=== PATIENT | female | born 1995 | race Caucasian/White ===

== ENCOUNTER 2016-12-30 12:41 | Emergency (ER) | payer MEDICAID ==
[2016-12-30 12:47] VITALS: BP 118/59; PULSE 98; RESP 20; TEMP 98.6; O2SAT 97
[2016-12-30] MEDS ORDERED: DOCO200C (12:49)
--- NOTE | 2016-12-30 13:08 | PD ---
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 She is about 2 months . She has had some nausea. She is 2 para 1. She has not had fever or chills. She has itching and occasional burning with urination PFSH Past Medical History ?: LMP: 10/23/16 Past Surgical History Tonsillectomy: Yes Social History Alcohol Use: No Tobacco Use: Yes Substance Use: No Allergies-Medications (Allergen,Severity, Reaction): Coded Allergies: No Known Allergies (Verified Allergy, Unknown, 12/30/16) Reported Meds & Prescriptions Reported Meds & Active Scripts Active Reported Dha (Docosahexaenoic Acid) 200 Mg Cap Review of Systems General / Constitutional: No: Fever, Chills Eyes: No: Diploplia, Blurred Vision HENT: No: Headaches, Vertigo Cardiovascular: No: Chest Pain or Discomfort, Palpitations Respiratory: No: Cough, Shortness of Breath Gastrointestinal: No: Vomiting, Diarrhea Genitourinary: Positive: Dysuria, Discharge Musculoskeletal: No: Myalgias, Arthralgias Skin: No Rash Physical Exam Narrative GENERAL: Well-developed female SKIN: Focused skin assessment warm/dry. HEAD: Atraumatic. Normocephalic. EYES: Pupils equal and round. No scleral icterus. No injection or drainage. ENT: No nasal bleeding or discharge. Mucous membranes pink and moist. NECK: Trachea midline. No JVD. GASTROINTESTINAL: Abdomen soft, non-tender, nondistended. Hepatic and splenic margins not palpable. Pelvic: There is whitish vaginal discharge. Os is closed. There is no bleeding MUSCULOSKELETAL: No obvious deformities. No clubbing. No cyanosis. No edema. NEUROLOGICAL: Awake and alert. No obvious cranial nerve deficits. Motor grossly within normal limits. Normal speech. PSYCHIATRIC: Appropriate mood and affect; insight and judgment normal. Data Data Last Documented VS Vital Signs Date Time Temp Pulse Resp B/P (MAP) Pulse Ox O2 Delivery O2 Flow Rate FiO2 12/30/16 12:47 98.6 98 20 118/59 (78) 97 Orders Orders Gc And Chlamydia Pcr (12/30/16 13:07) Wet Prep Profile (12/30/16 13:07) Ua Includes Microscopic (12/30/16 13:07) Labs Laboratory Tests Test 12/30/16 13:30 12/30/16 13:45 Urine Collection Type CLEAN CATCH Urine Color YELLOW Urine Turbidity SLIGHT Urine pH 5.5 Urine Specific [place] 1.021 Urine Protein NEG mg/dL Urine Glucose (UA) NEG mg/dL Urine Ketones NEG mg/dL Urine Occult Blood NEG Urine Nitrite NEG Urine Bilirubin NEG Urine Leukocyte Esterase SMALL Urine WBC 9-14 /hpf Urine Squamous Epithelial Cells > 8 /hpf Urine Amorphous Sediment MOD Urine Trichomonas MUCOUS Urine Collection Time 1330 Clue Cells (Wet Prep) NONE SEEN Vaginal Trichomonas (Wet Prep) NONE SEEN Vaginal Yeast (Wet Prep) NONE SEEN MDM Medical Decision Making Medical Screen Exam Complete: Yes Emergency Medical Condition: Yes Medical Record Reviewed: Yes Differential Diagnosis Differential includes yeast vaginitis, UTI, Trichomonas Narrative Course Wet prep is negative for Trichomonas. It is also negative for yeast but I suspect the diagnosis. I will recommend she continue Motrin. She'll also be given prescription for Macrobid Diagnosis Primary Impression: UTI (urinary tract infection) Additional Impression: Yeast vaginitis Disposition: 01 DISCHARGE HOME Condition: Stable Jacky Ruiz MD Dec 30, 2016 13:08
[2016-12-30 13:46] LABS: BILIRUBIN, URINE NEG (NEG); BLOOD, URINE NEG (NEG); GLUCOSE,URINE NEG (NEG); KETONE, URINE NEG (NEG); NITRITE,URINE NEG (NEG); PH, URINE 5.5 (5.0-8.5); URINE LEUKOCYTE ESTERASE SMALL (NEG)
[2016-12-30 13:53] LABS: URINE COLOR YELLOW (YELLW/STRAW)
[2016-12-30 13:54] LABS: AMORPHOUS SEDIMENT, URINE MOD; SQUAMOUS EPITHELIAL CELL URINE > 8 /hpf (0-5); TRICHOMONAS, URINE MUCOUS
[2016-12-30] MEDS ORDERED: GYNE3CRE VAGINAL (14:06)
[2016-12-30] MEDS ORDERED: MACR100C2 PO (14:06)
[2017-01-12] MEDS ORDERED: PREN1CAP7 PO (11:05)
== END 2016-12-30 14:19 | disposition home or self-care (01) ==
LOC: PHED 12:41
DX: O23.41 Unspecified infection of urinary tract in pregnancy, first trimester (principal); O98.811 Other maternal infectious and parasitic diseases complicating pregnancy, first trimester; B37.3 Candidiasis of vulva and vagina; Z3A.00 Weeks of gestation of pregnancy not specified
CPT/HCPCS: 81001; 87210; 87491; 87591; 99284

== ENCOUNTER 2017-05-26 12:32 | Emergency (ER) | payer MEDICAID ==
[~2017-05-26] VITALS: Ht 157.5 cm; Wt 99.8 kg
[~2017-05-26 12:32] MED LIST: FERRTAB2 PO; PREN1CAP7 PO; SE-NTAB3 PO
--- NOTE | 2017-05-26 13:31 | PD ---
HPI Chief Complaint Abdominal pain and decreased movement Date Seen: May 26, 2017 Time Seen: 13:26 Travel History International Travel<30 Days: No Contact w/Intl Traveler<30Days: No Known Affected Area: No History of Present Illness HPI 21-year-old who is at 30 weeks gestation comes in complaining of abdominal pain in her left side radiating into the groin and down her leg this been present daily for the past month. It does not seem to improve with position or rest and it is not associated with any contractions. Patient also complains of decreased movement for the past 3 days. She had seen by Dr Padilla in the office today who was very reassured by her exam but she was concerned Weeks Gestation: 30 Para: 1 : 2 History Past Medical History Medical History: Denies Significant Hx Obstetric History Obstetric History Spontaneous vaginal delivery at term Past Surgical History Surgical History: No Previous Surgery Family History Family History: Negative Social History Alcohol Use: No Tobacco Use: No Substance Abuse: No Allergies-Medications (Allergen,Severity, Reaction): Coded Allergies: No Known Allergies (Verified , 02/07/17) Home Meds Active Scripts Multi-Vit/Iron-Folic [id number] C (Ferralet) 90-1-0.012-120 mg Tab, 1 CAPLET PO DAILY for 30 Days, #30 CAPLET 3 Refills Prov:Morenita Light CNM [facility] 03/09/17 W/O Vit A W/ Fe Fumar (Citranatal [place]) 27-1-260 Mg Cap, 1 CAP PO DAILY for Nutritional Supplement, #30 CAP 4 Refills Prov:Morenita Light CNM [facility] 01/12/17 Discontinued Scripts Vit W/ Docusate-Fe Fu (Se- 19 29-1 mg) 29 Mg Iron-1 Mg-25 Mg Tab, 1 TAB PO DAILY for Nutritional Supplement for 30 Days, #30 TAB 3 Refills Prov:Morenita Light CNM [facility] 03/09/17 Multi-Vit/Iron-Folic [id number] C (Ferralet) 90-1-0.012-120 mg Tab, 1 CAPLET PO DAILY for 30 Days, #30 CAN 3 Refills Prov:Morenita Light CNM [facility] 03/04/17 Vit W/ Docusate-Fe Fu (Se- 19 29-1 mg) 29 Mg Iron-1 Mg-25 Mg Tab, 1 TAB PO DAILY for Nutritional Supplement for 28 Days, #28 TAB 2 Refills Prov:Morenita Light [employer]ORDS MANAGEMENT MANAGER 01/31/17 Review of Systems Except as stated in HPI: all other systems reviewed are Neg Physical Exam Narrative GENERAL: Well-nourished, well-developed patient. SKIN: Warm and dry. HEAD: Normocephalic and atraumatic. EYES: No scleral icterus. No injection or drainage. ENT: No nasal drainage noted. Mucous membranes pink. Airway patent. NECK: Supple, trachea midline. No JVD. CARDIOVASCULAR: Regular rate and rhythm without murmurs, gallops, or rubs. RESPIRATORY: Breath sounds equal bilaterally. No accessory muscle use. ABDOMEN/GI: Abdomen soft, non-tender, bowel sounds present, no rebound, no guarding Gravid to [-] weeks size 31 Fundal Height: [-] GENITOURINARY: Patient declines exam External Genitalia: intact and normal in appearance BUS glands: [-] Cervix: [-] Dilatation: [-] Effacement: [-] Station: [-] Presentation: [-] Membranes: [intact or ruptured] Uterine Contractions: [-] FHT's: Category: [-] 1 Baseline: [-] 140 Reactive: [-] Moderate Variability: [-] Moderate Decels: [-] Absent EXTREMITIES: No cyanosis or edema. BACK: Nontender without obvious deformity. No CVA tenderness. NEUROLOGICAL: Awake and alert. Motor and sensory grossly within normal limits. Five out of 5 muscle strength in all muscle groups. Normal speech. Data Data Vital Signs Reviewed: Yes [facility] Medical Record Reviewed: Yes Plan 21-year-old P1 who is at 30 weeks gestation with decreased movement and normal nonstress test with audible frequent movements of the baby the patient is not perceiving -consider weekly nonstress tests if the patient is unable to perceive movements for the remainder of her Left side pain into the groin consistent with discomforts of , patient declines any changes in her work or decrease in work hours she states the pain has not changed despite any changes in her work or physical exertion. Reviewed and discussed labor signs and symptoms Diagnosis Diagnosis: Primary Impression: 30 weeks gestation of Additional Impressions: Abdominal pain during in third trimester Decreased movements, third trimester, other fetus Disposition: 01 DISCHARGE HOME Melany Gomez MD May 26, 2017 13:31
== END 2017-05-26 13:56 | disposition home or self-care (01) ==
LOC: HOBED 12:32
DX: O26.893 Other specified pregnancy related conditions, third trimester (principal); R10.9 Unspecified abdominal pain; O36.8130 Decreased fetal movements, third trimester, not applicable or unspecified; Z3A.30 30 weeks gestation of pregnancy
CPT/HCPCS: 99283

== ENCOUNTER → 2017-06-12 | Emergency (ER) | payer MEDICAID ==
[~2017-06-12] VITALS: Ht 157.5 cm; Wt 101.2 kg
[~2017-06-12] MED LIST changes: -SE-NTAB3 PO; +SODIUM CHLORIDE 0.9% FLUSH 10 ML FLUSH IV FLUSH PRN
[2017-06-12 18:17] VITALS: BP 125/69; PULSE 96; RESP 20; TEMP 98.7; O2SAT 98
[2017-06-12 18:35] LABS: BILIRUBIN, URINE NEG (NEG); BLOOD, URINE NEG (NEG); GLUCOSE,URINE NEG (NEG); KETONE, URINE NEG (NEG); NITRITE,URINE NEG (NEG); PH, URINE 5.5 (5.0-8.5); URINE LEUKOCYTE ESTERASE NEG (NEG)
[2017-06-12 18:36] LABS: URINE COLOR YELLOW (YELLW/STRAW)
[2017-06-12 18:41] LABS: BACTERIA, URINE MOD /hpf; SQUAMOUS EPITHELIAL CELL URINE > 8 /hpf (0-5)
--- NOTE | 2017-06-12 18:45 | PD ---
HPI Chief Complaint: Abdominal Pain Time Seen by Provider: 18:20 Travel History International Travel<30 days: No Contact w/Intl Traveler<30days: No Traveled to known affect area: No History of Present Illness HPI 21-year-old female presents emergency department for evaluation of lower quadrant abdominal cramping. Patient states been going on for the past few weeks, she is at approximately 33 weeks gestational age, followed by Dr. Padilla. Patient denies any fevers, she does endorse some vaginal spotting, no nausea no vomiting no diarrhea no constipation no difficulty urinating and no loss of fluid. Patient states she is concerned because her first was complicated by an umbilical cord cyst. [facility] Past Medical History Medical History: Denies Significant Hx Diminished Hearing: No ?: : 1 Para: 1 Past Surgical History Surgical History: No Previous Surgery Tonsillectomy: Yes Social History Alcohol Use: No Tobacco Use: No Substance Use: No Allergies-Medications (Allergen,Severity, Reaction): Coded Allergies: No Known Allergies (Verified , 06/12/17) Reported Meds & Prescriptions Reported Meds & Active Scripts Active Ferralet (Multi-Vit/Iron-Folic [id number] C) 90-1-0.012-120 mg Tab 1 Caplet PO DAILY 30 Days Citranatal [place] ( W/O Vit A W/ Fe Fumar) 27-1-260 Mg Cap 1 Cap PO DAILY Review of Systems Except as stated in HPI: all other systems reviewed are Neg Physical Exam Narrative GENERAL: Well-developed well-nourished no obvious distress SKIN: Focused skin assessment warm/dry. HEAD: Atraumatic. Normocephalic. EYES: Pupils equal and round. No scleral icterus. No injection or drainage. ENT: No nasal bleeding or discharge. Mucous membranes pink and moist. NECK: Trachea midline. No JVD. CARDIOVASCULAR: Regular rate and rhythm. No murmur appreciated. RESPIRATORY: No accessory muscle use. Clear to auscultation. Breath sounds equal bilaterally. GASTROINTESTINAL: Abdomen soft, non-tender, gravid. Hepatic and splenic margins not palpable. GENITOURINARY: Grossly normal external female genitalia, sterile glove examination reveals a fingertip cervix with the head is not engaged. No gross blood on examination. This exam was performed with female nurse home health manager present all times MUSCULOSKELETAL: No obvious deformities. No clubbing. No cyanosis. No edema. NEUROLOGICAL: Awake and alert. No obvious cranial nerve deficits. Motor grossly within normal limits. Normal speech. PSYCHIATRIC: Appropriate mood and affect; insight and judgment normal. Data Data Last Documented VS Vital Signs Date Time Temp Pulse Resp B/P (MAP) Pulse Ox O2 Delivery O2 Flow Rate FiO2 06/12/17 19:18 90 16 107/55 (72) 95 06/12/17 18:17 98.7 Orders Orders Urinalysis - C+S If Indicated (06/12/17 18:13) Ed Poc Ultrasound (06/12/17 ) Urine Culture (06/12/17 18:25) Basic Metabolic Panel (Bmp) (06/12/17 18:49) Complete Blood Count With Diff (06/12/17 18:49) Sodium Chloride 0.9% Flush (Ns Flush) (06/12/17 19:00) Abo/Rh Blood Type (06/12/17 18:49) Labs Laboratory Tests Test 06/12/17 18:25 06/12/17 19:06 Urine Collection Type CLEAN CATCH Urine Color YELLOW Urine Turbidity CLEAR Urine pH 5.5 Urine Specific [place] 1.025 Urine Protein NEG mg/dL Urine Glucose (UA) NEG mg/dL Urine Ketones NEG mg/dL Urine Occult Blood NEG Urine Nitrite NEG Urine Bilirubin NEG Urine Urobilinogen 0.2 MG/DL Urine Leukocyte Esterase NEG Urine WBC 6-8 /hpf Urine Squamous Epithelial Cells > 8 /hpf Urine Bacteria MOD /hpf Microscopic Urinalysis Comment CULTURE INDICATED Urine Collection Time 18:25 White Blood Count 7.8 TH/MM3 Red Blood Count 4.52 MIL/MM3 Hemoglobin 12.0 GM/DL Hematocrit 36.5 % Mean Corpuscular Volume 80.8 FL Mean Corpuscular Hemoglobin 26.6 PG Mean Corpuscular Hemoglobin Concent 33.0 % Red Cell Distribution Width 17.8 % Platelet Count 193 TH/MM3 Mean Platelet Volume 9.5 FL Neutrophils (%) (Auto) 67.1 % Lymphocytes (%) (Auto) 24.2 % Monocytes (%) (Auto) 7.7 % Eosinophils (%) (Auto) 0.7 % Basophils (%) (Auto) 0.3 % Neutrophils # (Auto) 5.2 TH/MM3 Lymphocytes # (Auto) 1.9 TH/MM3 Monocytes # (Auto) 0.6 TH/MM3 Eosinophils # (Auto) 0.1 TH/MM3 Basophils # (Auto) 0.0 TH/MM3 CBC Comment DIFF FINAL Differential Comment Blood Urea Nitrogen 7 MG/DL Creatinine 0.49 MG/DL Random Glucose 117 MG/DL Calcium Level 8.6 MG/DL Sodium Level 138 MEQ/L Potassium Level 3.7 MEQ/L Chloride Level 107 MEQ/L Carbon Dioxide Level 22.2 MEQ/L Anion Gap 9 MEQ/L Estimat Glomerular Filtration Rate 157 ML/MIN MDM Medical Decision Making Medical Screen Exam Complete: Yes Emergency Medical Condition: Yes Differential Diagnosis Abdominal pain and , round ligament pain, distress, a symptomatically bacteria Narrative Course Patient room to the emergency department, my ultrasound is reassuring, my physical exam is reassuring the patient does not appear to be in labor. The patient was discussed with Dr. Lacy and he agrees that the patient should be evaluated in OB ED. Patient would like to go by private vehicle and I think this is reasonable as her pain appears well under control, she has a benign abdomen. I have drawn basic labs and sent them in case Dr. Ch would like them including a blood type to assess for Rh incompatibility Procedures Procedure Narrative Bedside ultrasound: Transabdominal views obtained of the uterus showing approximately 33 week gestational age fetus by biparietal diameter, positive motion, heart tones to 145 by M-mode. Diagnosis Primary Impression: Abdominal pain affecting Disposition: 70 TRANSFER TO OTHER FACILITY (OB/ED at [facility].) Condition: Stable Dante Guzman MD Jun 12, 2017 18:45
[2017-06-12 19:18] VITALS: BP 107/55
[2017-06-12 19:25] LABS: AUTOMATED NEUTROPHIL # 5.2 TH/MM3 (1.8-7.7); BASOPHIL % 0.3 % (0.0-2.0); EOSINOPHIL # 0.1 TH/MM3 (0-0.4); EOSINOPHIL % 0.7 % (0.0-4.0); HEMATOCRIT 36.5 % (35.0-46.0); LYMPH % 24.2 % (9.0-44.0); LYMPHOCYTE # 1.9 TH/MM3 (1.0-4.8); MEAN CELL VOLUME 80.8 FL (80.0-100.0); MEAN CORPUSCULAR HEMOGLOBIN 26.6 PG (27.0-34.0); MEAN PLATELET VOLUME 9.5 FL (7.0-11.0); MONO % 7.7 % (0.0-8.0); MONOCYTE # 0.6 TH/MM3 (0-0.9); NEUT % 67.1 % (16.0-70.0); PLATELET COUNT 193 TH/MM3 (150-450); RED BLOOD COUNT 4.52 MIL/MM3 (4.00-5.30); RED CELL DISTRIBUTION WIDTH 17.8 % (11.6-17.2); WHITE BLOOD COUNT 7.8 TH/MM3 (4.0-11.0)
[2017-06-12 19:38] LABS: BICARBONATE 22.2 MEQ/L (21.0-32.0); CALCIUM 8.6 MG/DL (8.5-10.1)
[2017-06-12 19:41] LABS: CREATININE 0.49 MG/DL (0.50-1.00)
== END | disposition home or self-care (01) ==
LOC: PHED 18:08
DX: O26.893 Other specified pregnancy related conditions, third trimester (principal); R10.9 Unspecified abdominal pain; Z3A.33 33 weeks gestation of pregnancy
CPT/HCPCS: 80048; 81001; 85025; 86900; 86901; 87086; 99284

== ENCOUNTER 2017-08-06 10:01 | Inpatient (IN) | payer MEDICAID ==
[~2017-08-06] VITALS: Ht 157.5 cm; Wt 109.0 kg
[~2017-08-06 10:01] MED LIST changes: -SODIUM CHLORIDE 0.9% FLUSH 10 ML FLUSH IV FLUSH PRN
[2017-08-06] MEDS ORDERED: LACTATED RINGER'S 1000 ML INJ 1,000 ML IV PRN (10:42)
[2017-08-06] MEDS ORDERED: MINERAL OIL 10 ML VIAL TOPICAL PRN (10:45)
[2017-08-06] MEDS ORDERED: CITRIC ACID-SODIUM CITRATE LIQ 30 ML UDC PO SCH (10:45)
[2017-08-06] MEDS ORDERED: OXYTOCIN 30 UNITS-500ML PREMIX 500 ML IV ONE (10:45)
[2017-08-06] MEDS ORDERED: SODIUM CHLORID 0.9% 500 ML INJ 500 ML IV PRN (10:45)
[2017-08-06] MEDS ORDERED: PENICILLIN G POTASSIUM INJ 5,000,000 UNITS in SODIUM CHLORIDE 0.9% INJ 100 ML IV ONE (10:45)
[2017-08-06] MEDS ORDERED: LIDOCAINE HCL 1% 50 ML VIAL I-DERMAL PRN (10:45)
[2017-08-06] MEDS ORDERED: LIDOCAINE HCL 1% 50 ML VIAL INFIL PRN (10:45)
[2017-08-06] MEDS ORDERED: SODIUM CHLOR 0.9% 1000 ML INJ 1,000 ML IV PRN (11:02)
--- NOTE | 2017-08-06 11:32 | HHI.HP ---
History & Physical H&P HPI Chief Complaint ctxs Date Seen: Aug 06, 2017 Time Seen: 10:44 Travel History International Travel<30 Days: No Contact w/Intl Traveler<30Days: No Known Affected Area: No History of Present Illness HPI pt. is a 21 @ 40 5/7 weeks present w/ c/o ctxs. pt. states ctxs began last evening and have increased in intensity and freq. +FM, no lof/vb. on present pt. cervix checked /high Weeks Gestation: 40 Para: 1 : 2 History (Limited) History Past Medical History Narrative Medical hypthyroidism Obstetric History Obstetric History , x 1 Past Surgical History Surgical History: No Previous Surgery Family History Family History: Negative Social History Alcohol Use: No Tobacco Use: No Substance Abuse: No Allergies-Medications Allergies-Medications (Allergen,Severity, Reaction): Coded Allergies: No Known Allergies (Verified , 06/12/17) Home Meds Active Scripts Multi-Vit/Iron-Folic [id number]-[id number] C (Ferralet) 90-1-0.012-120 mg Tab, 1 CAPLET PO DAILY for 30 Days, #30 CAPLET 3 Refills Prov:Morenita Light CNM [facility] 03/09/17 W/O Vit A W/ Fe Fumar (Citranatal [place]) 27-1-260 Mg Cap, 1 CAP PO DAILY for Nutritional Supplement, #30 CAP 4 Refills Prov:Morenita Light CNM [facility] 01/12/17 ROS Review of Systems Except as stated in HPI: all other systems reviewed are Neg Physical Exam Physical Exam Narrative GENERAL: Well-nourished, well-developed patient. SKIN: Warm and dry. HEAD: Normocephalic and atraumatic. EYES: No scleral icterus. No injection or drainage. ENT: No nasal drainage noted. Mucous membranes pink. Airway patent. NECK: Supple, trachea midline. No JVD. CARDIOVASCULAR: Regular rate and rhythm without murmurs, gallops, or rubs. RESPIRATORY: Breath sounds equal bilaterally. No accessory muscle use. BREASTS: Bilateral exam showed no masses , no retractions, no nipple discharge. ABDOMEN/GI: Abdomen soft, non-tender, bowel sounds present, no rebound, no guarding Gravid GENITOURINARY: External Genitalia: intact and normal in appearance Dilatation: 5 Effacement: 60 Station: high Presentation: cephalic Membranes: intact Uterine Contractions: q5mins FHT's: Category: 1 Reactive: + Variability: mod EXTREMITIES: No cyanosis or edema. BACK: Nontender without obvious deformity. No CVA tenderness. NEUROLOGICAL: Awake and alert. Motor and sensory grossly within normal limits. Five out of 5 muscle strength in all muscle groups. Normal speech. Data Data Data Vital Signs Reviewed: Yes Orders Orders Admit To Inpatient (08/06/17 ) Code Status (08/06/17 10:42) Vital Signs (Adult) .Per protocol (08/06/17 10:42) Activity Oob [place] (08/06/17 10:42) Heart (08/06/17 10:42) Amnioinfusion (08/06/17 10:42) Urinary Catheter Management .ONCE (08/06/17 10:42) Diet Liquid (08/06/17 Lunch) Lactated Ringer's 1000 Ml Inj (Lr 1000 M (08/06/17 10:42) Lactated Ringer's 1000 Ml Inj (Lr 1000 M (08/06/17 10:42) Sodium Chlorid 0.9% 500 Ml Inj (Ns 500 M (08/06/17 10:45) Sodium Chlor 0.9% 1000 Ml Inj (Ns 1000 M (08/06/17 11:02) Lidocaine 1% Inj (50 Ml) (Xylocaine 1% I (08/06/17 10:45) Citric Acid-Sodium Citrate Liq (Bicitra (08/06/17 10:45) Fentanyl Inj (Fentanyl Inj) (08/06/17 10:45) Fentanyl Inj (Fentanyl Inj) (08/06/17 10:45) Penicillin G Potassium Inj (Pfizerpen-G (08/06/17 10:45) Penicillin G Potassium Inj (Pfizerpen-G (08/06/17 14:45) Complete Blood Count With Diff (08/06/17 10:42) Hold Clot (08/06/17 10:42) Abo/Rh Blood Type (08/06/17 10:42) Urinalysis - C+S If Indicated (08/06/17 10:42) Drug Screen, Random Urine (08/06/17 10:42) Ob/Psych Drug Screen, Urine (08/06/17 10:42) Resp Oxygen Non Rebreathe Mask (08/06/17 ) ^ Epidural / Intrathecal Infus (08/06/17 10:42) Oxytocin 30 Units-500ml Premix (Pitocin (08/06/17 10:45) Lidocaine 1% Inj (50 Ml) (Xylocaine 1% I (08/06/17 10:45) Light Mineral Oil (Muri-Lube Oil) (08/06/17 10:45) Inpatient Certification (08/06/17 ) Group B Strep: Positive MDM MDM Medical Record Reviewed: Yes Plan pt. to be admitted. fht reassuring. fentanyl vs epidural for analgesia. pcn for gbs prophylaxis. Diagnosis Diagnosis: Primary Impression: Uterine contractions Additional Impression: 40 weeks gestation of Lisandro Busby Jr., MD Aug 06, 2017 11:32
[2017-08-06 12:06] LABS: AUTOMATED NEUTROPHIL # 6.4 TH/MM3 (1.8-7.7); BASOPHIL % 0.3 % (0.0-2.0); EOSINOPHIL % 0.3 % (0.0-4.0); HEMATOCRIT 35.8 % (35.0-46.0); HEMOGLOBIN 11.6 GM/DL (11.6-15.3); LYMPH % 21.1 % (9.0-44.0); MEAN CELL VOLUME 78.6 FL (80.0-100.0); MEAN CORPUSCULAR HEMOGLOBIN 25.5 PG (27.0-34.0); MEAN CORPUSCULAR HGB CONC 32.4 % (32.0-36.0); MONO % 9.5 % (0.0-8.0); MONOCYTE # 0.9 TH/MM3 (0-0.9); NEUT % 68.8 % (16.0-70.0); PLATELET COUNT 158 TH/MM3 (150-450); RED BLOOD COUNT 4.55 MIL/MM3 (4.00-5.30); WHITE BLOOD COUNT 9.3 TH/MM3 (4.0-11.0)
[2017-08-06] MEDS ORDERED: OXYTOCIN 30 UNITS-500ML PREMIX 500 ML IV PRN (12:45)
[2017-08-06 12:49] LABS: AMORPHOUS SEDIMENT, URINE OCC; BACTERIA, URINE RARE /hpf; BLOOD, URINE SMALL (NEG); GLUCOSE,URINE NEG (NEG); KETONE, URINE TRACE mg/dL (NEG); MUCUS URINE MOD /lpf (OCC); NITRITE,URINE NEG (NEG); SQUAMOUS EPITHELIAL CELL URINE 7 /hpf (0-5); URINE COLOR DARK-YELLOW (YELLW/STRAW); URINE LEUKOCYTE ESTERASE MOD (NEG)
[2017-08-06 12:52] LABS: BILIRUBIN, URINE NEG (NEG)
[2017-08-06] MEDS ORDERED: ePHEDrine/NS 25 MG/5 ML SYRINGE ONE (13:17)
[2017-08-06] MEDS ORDERED: fentaNYL 2MCG-BUPIV 0.125% INJ 150 ML EPIDURAL ONE (13:17)
[2017-08-06] MEDS ORDERED: LIDOCAINE 2%/EPINEPHrine PF 1:200,000 20ML SDV ONE (13:19)
[2017-08-06] MEDS: LACTATED RINGER'S 1000 ML INJ 1,000 ML IV SCH ×2 (14:10→18:42)
[2017-08-06] MEDS ORDERED: ePHEDrine/NS 25 MG/5 ML SYRINGE IV PUSH PRN (14:30)
[2017-08-06] MEDS ORDERED: fentaNYL 2MCG-BUPIV 0.125% 150 ML EPIDURAL PRN (14:30)
[2017-08-06] MEDS ORDERED: PENICILLIN G POTASSIUM INJ 2,500,000 UNITS in SODIUM CHLORIDE 0.9% INJ 100 ML IV SCH (14:45)
[2017-08-06] MEDS ORDERED: DO NOT ADMINISTER ANTICOAGULANTS PRN (15:00)
[2017-08-06] MEDS ORDERED: NO SYSTEM NARCOTICS PRN (15:00)
[2017-08-06] MEDS: PENICILLIN G POTASSIUM INJ 2,500,000 UNITS in SODIUM CHLORIDE 0.9% INJ 100 ML IV SCH ×2 (16:00→20:00)
[2017-08-06] MEDS ORDERED: ONDANSETRON ODT 4 MG TAB PO ONE (23:45)
[2017-08-06] MEDS ORDERED: ONDANSETRON ODT 4 MG TAB PO PRN (23:45)
[2017-08-07] MEDS: PENICILLIN G POTASSIUM INJ 2,500,000 UNITS in SODIUM CHLORIDE 0.9% INJ 100 ML IV SCH ×2
[2017-08-07] MEDS ORDERED: ACETAMINOPHEN 1000 MG/100 ML 100 ML IV ONE ×2 (01:39→02:30)
[2017-08-07] MEDS ORDERED: LACTATED RINGER'S 1000 ML IV ONE (06:45)
[2017-08-07] MEDS ORDERED: CITRIC ACID-SODIUM CITRATE LIQ 30 ML UDC PO SCH (06:45)
[2017-08-07] MEDS ORDERED: LACTATED RINGER'S 1000 ML IV SCH (06:45)
[2017-08-07] MEDS ORDERED: ceFAZolin 2 GM PREMIX 50 ML IV SCH (06:45)
[2017-08-07] MEDS ORDERED: MORPHINE SULFATE PF 5 MG/10 ML VIAL ONE (07:22)
[2017-08-07] MEDS ORDERED: SODIUM BICARBONATE 8.4% INJ 50 ML ONE (07:36)
[2017-08-07] MEDS ORDERED: ONDANSETRON ODT 4 MG TAB PO PRN (09:00)
[2017-08-07] MEDS ORDERED: ZOLPIDEM TARTRATE 5 MG TAB PO PRN (09:00)
[2017-08-07] MEDS ORDERED: SODIUM CHLORIDE 0.9% FLUSH 10 ML FLUSH IV FLUSH PRN (09:00)
[2017-08-07] MEDS ORDERED: oxyCODONE/ACETAMINOPHEN 5 MG/325 MG TAB PO PRN (09:00)
[2017-08-07] MEDS ORDERED: ACETAMINOPHEN 325 MG TAB PO PRN (09:00)
[2017-08-07] MEDS: SODIUM CHLORIDE 0.9% FLUSH 10 ML FLUSH IV FLUSH SCH (09:00)
[2017-08-07] MEDS ORDERED: SIMETHICONE 80 MG CHEWABLE TAB PO PRN (09:00)
[2017-08-07] MEDS ORDERED: OXYTOCIN 30 UNITS-500ML PREMIX 500 ML IV ONE (09:00)
--- NOTE | 2017-08-07 09:42 | MP ---
cc: Mandy Natarajan MD DATE OF OPERATION: PREOPERATIVE DIAGNOSES: Intrauterine at term, arrest of dilatation, arrest of descent. POSTOPERATIVE DIAGNOSES: Intrauterine at term, arrest of dilatation, arrest of descent. PROCEDURE PERFORMED: Primary lower segment transverse section via Pfannenstiel skin incision. SURGEON: Dr. Mandy Natarajan. ANESTHESIA: Epidural. FLUIDS: 1000 mL crystalloids. ESTIMATED BLOOD LOSS: 900 mL URINE OUTPUT: 75 mL yellow at the end of the procedure. FINDINGS: A live female was delivered vertex presentation. Apgars 8 at 1 minute and 9 at 5 minutes, weight 9 pounds 10 ounces. PROCEDURES: The patient was taken to the operating room, where epidural anesthesia was found to be adequate. She was then prepped and draped in the normal sterile fashion in the dorsal supine position with a leftward tilt. A Pfannenstiel skin incision was made with a scalpel and carried down to the underlying layer of fascia. The fascia was nicked in the midline. The incision was extended laterally with curved De Souza scissors. Attention was turned to the inferior aspect of the incision, which was grasped with Martinez clamps, elevated, and the rectus muscle dissected off sharply. Attention was turned to the superior aspect of the incision, which was grasped with Martinez clamps, elevated, and the rectus muscles dissected off sharply. The rectus muscles were in the midline. The peritoneum was identified, grasped between 2 Yenfier clamps, elevated, and entered sharply with Metzenbaum scissors. This incision was extended superiorly and inferiorly with good visualization of the bladder. The bladder blade was inserted. The vesicouterine peritoneum was identified, grasped with pickups and entered sharply with Metzenbaum scissors. This incision was extended laterally and the bladder flap created digitally. The lower uterine segment was incised in a transverse fashion with a scalpel. The incision was extended laterally with bandage scissors. The vertex was then delivered. The oropharynx and nasopharynx were bulb suctioned with the syringe. The shoulders were delivered atraumatically. The cord was clamped x 2 and cut after waiting 45 seconds. The was handed off to the waiting nurse. Placenta was removed manually and sent for donation. The uterus was cleared of all clots and debris. The uterine incision was repaired in 2 layers with #1 Vicryl. The bladder flap was closed in a running fashion with 3-0 chromic. Hemostasis was assured. The gutters were cleared of all clots and debris. The fascia was closed in a running fashion with 0 Vicryl. The skin was closed with pam. A pressure dressing was applied. The sponge, lap, needle and instrument counts were correct x 3. The patient was transferred to the recovery room in stable condition. MD KRYSTYNA Arellano/TL , 09:00 AM , 09:41 AM
[2017-08-07] MEDS ORDERED: EPIDURAL-NO SYSTEMIC NARCOTICS PRN (11:00)
[2017-08-07] MEDS ORDERED: EPIDURAL-DIPHENHYDRAMINE HCL 50 MG CAP PO PRN (11:00)
[2017-08-07] MEDS ORDERED: EPIDURAL-DIPHENHYDRAMINE HCL 50 MG/ML VIAL IV PUSH PRN (11:00)
[2017-08-07] MEDS ORDERED: EPIDURAL-NALOXONE HCL 0.4 MG/ML AMP IV PUSH PRN (11:00)
[2017-08-07] MEDS ORDERED: EPIDURAL-DO NOT ADMINISTER ANTICOAGULANTS PRN (11:00)
[2017-08-07 12:00] VITALS: BP 91/43; PULSE 70; RESP 18; TEMP 98.1
[2017-08-07] MEDS ORDERED: ONDANSETRON HCL 4 MG/2 ML VIAL IV ONE (12:00)
[2017-08-07] MEDS ORDERED: LIDOCAINE 2%/EPINEPHrine PF 1:200,000 20ML SDV OTHER ONE (12:00)
[2017-08-07] MEDS ORDERED: OXYTOCIN 10 UNIT/ML AMP IV ONE (12:00)
[2017-08-07] MEDS ORDERED: PHENYLEPH/NS 1000 MCG/10 ML SYR IV ONE (12:00)
[2017-08-07] MEDS ORDERED: LACTATED RINGER'S 1000 ML INJ 1,000 ML IV ONE (12:00)
[2017-08-07 13:20] VITALS: BP 129/56
[2017-08-07] MEDS ORDERED: LACTATED RINGER'S 1000 ML INJ 1,000 ML IV SCH (13:49)
[2017-08-07] MEDS ORDERED: OXYTOCIN 30 UNITS-500ML PREMIX 500 ML IV PRN (14:00)
[2017-08-07] MEDS: IBUPROFEN 600 MG TAB PO PRN (18:27)
[2017-08-07] MEDS: oxyCODONE/ACETAMINOPHEN 5 MG/325 MG TAB PO PRN (18:27)
[2017-08-08] MEDS: IBUPROFEN 600 MG TAB PO PRN ×2 (02:28→08:26)
[2017-08-08] MEDS: oxyCODONE/ACETAMINOPHEN 5 MG/325 MG TAB PO PRN ×3 (02:29→12:37)
[2017-08-08] MEDS: DOCUSATE SODIUM 50 MG/SENNA 8.6 MG TAB PO PRN ×2 (05:03→20:15)
[2017-08-08 05:49] LABS: AUTOMATED NEUTROPHIL # 5.6 TH/MM3 (1.8-7.7); BASOPHIL % 0.4 % (0.0-2.0); EOSINOPHIL # 0.1 TH/MM3 (0-0.4); EOSINOPHIL % 0.6 % (0.0-4.0); HEMATOCRIT 22.8 % (35.0-46.0); HEMOGLOBIN 7.4 GM/DL (11.6-15.3); LYMPH % 19.8 % (9.0-44.0); LYMPHOCYTE # 1.6 TH/MM3 (1.0-4.8); MEAN CELL VOLUME 79.6 FL (80.0-100.0); MEAN CORPUSCULAR HEMOGLOBIN 25.9 PG (27.0-34.0); MEAN CORPUSCULAR HGB CONC 32.5 % (32.0-36.0); MEAN PLATELET VOLUME 9.6 FL (7.0-11.0); MONO % 10.4 % (0.0-8.0); MONOCYTE # 0.9 TH/MM3 (0-0.9); NEUT % 68.8 % (16.0-70.0); PLATELET COUNT 127 TH/MM3 (150-450); RED BLOOD COUNT 2.87 MIL/MM3 (4.00-5.30); RED CELL DISTRIBUTION WIDTH 15.8 % (11.6-17.2); WHITE BLOOD COUNT 8.1 TH/MM3 (4.0-11.0)
--- NOTE | 2017-08-08 10:49 | HHI.OB ---
Subjective Post Operative Day: 1 Objective Vitals/I&O Vital Signs Date Time Temp Pulse Resp B/P (MAP) Pulse Ox O2 Delivery O2 Flow Rate FiO2 08/07/17 13:20 129/56 (80) 08/07/17 12:00 98.1 70 18 91/43 (59) Result Diagram: 08/08/17 0532 Objective Remarks GENERAL: Well-nourished, well-developed patient. CARDIOVASCULAR: Regular rate and rhythm without murmurs, gallops, or rubs. RESPIRATORY: Breath sounds equal bilaterally. No accessory muscle use. ABDOMEN/GI: Abdomen soft, non-tender, bowel sounds present. Incision: dressing, Clean, dry and intact. Fundus: Firm, non-tender at umbilicus. GENITOURINARY: Light to moderate bleeding. EXTREMITIES: No cyanosis, +1 pitting edema to lower extremities, non-tender, without signs of DVT. Medications and IVs Current Medications Medications (Trade) Dose Ordered Sig/Dillon Route Start Time Stop Time Status Last Admin Oxytocin 500 ml @ 100 mls/hr UNSCH X1 PRN IV 08/07/17 14:00 08/08/17 13:59 (NS Flush) 2 ml BID IV FLUSH 08/07/17 09:00 (NS Flush) 2 ml UNSCH PRN IV FLUSH 08/07/17 09:00 (Mylicon Chew) 80 mg QID PRN PO 08/07/17 09:00 (Tylenol) 650 mg Q6H PRN PO 08/07/17 09:00 (Percocet 5-325 Mg) 1 tab Q4H PRN PO 08/07/17 09:00 (Percocet 5-325 Mg) 2 tab Q4H PRN PO 08/07/17 09:00 08/08/17 06:30 (Raquel-Colace) 2 tab Q12H PRN PO 08/07/17 09:00 08/08/17 05:03 (Ambien) 5 mg HS PRN PO 08/07/17 09:00 (M-M-R Ii Inj) 0.5 ml ONCE ONCE SQ 08/08/17 16:00 08/08/17 16:01 (Boostrix Inj) 0.5 ml ONCE ONCE IM 08/08/17 16:00 08/08/17 16:01 (Zofran Odt) 4 mg Q6H PRN PO 08/07/17 09:00 ([facility] Nursing Information) NO SYSTEMIC NARCOTICS TO BE GIVEN FO... UNSCH PRN .XX 08/07/17 11:00 08/08/17 10:59 (Narcan Inj) 0.4 mg UNSCH PRN IV PUSH 08/07/17 11:00 08/08/17 10:59 (Benadryl Inj) 25 mg Q6H PRN IV PUSH 08/07/17 11:00 08/08/17 10:59 (Benadryl) 50 mg Q6H PRN PO 08/07/17 11:00 08/08/17 10:59 ([facility] Nursing Information) ALL NURSING DEPARTMENTS UNSCH PRN .XX 08/07/17 11:00 08/08/17 10:59 Iron Sucrose 200 mg/Sodium Chloride 110 ml @ 110 mls/hr Q24H IV 08/08/17 11:00 08/10/17 11:59 (Motrin) 400 mg Q4HR PO 08/08/17 12:00 Assessment/Plan Problem List: (1) Anemia ICD Codes: D64.9 - Anemia, unspecified Plan: Venofer iv (2) Delivery by section of full-term infant ICD Codes: O82 - Encounter for delivery without indication Plan: routine Assessment and Plan POD #1 primary c/s pt doing well hgb 7.4, Venofer ordered IV VSS she is feeling painful, will adjust timing on Anne, offered a supplement of pain medication via shot but pt refused and bonding with infant will check thyroid pt to shower today Discharge Planning consider dc in 1-2 days Ana Mcclain Aug 08, 2017 10:49
[2017-08-08] MEDS: IRON SUCROSE INJ 200 MG in SODIUM CHLORIDE 0.9% INJ 100 ML IV SCH (11:36)
[2017-08-08] MEDS: IBUPROFEN 400 MG TAB PO SCH ×3 (12:37→20:15)
[2017-08-08] MEDS ORDERED: ACETAMINOPHEN/HYDROcodone 325 MG/5 MG TAB PO PRN (15:45)
[2017-08-08] MEDS: ACETAMINOPHEN/HYDROcodone 325 MG/10 MG TAB PO PRN ×2 (15:54→20:14)
[2017-08-08] MEDS ORDERED: DIPHTH/TETANUS/ACEL PERTUSSIS (BOOSTER) 0.5 ML VIAL/PFS IM ONE (16:00)
[2017-08-08] MEDS ORDERED: MEASLES, MUMPS, RUBELLA VACCINE 0.5 ML VIAL SQ ONE (16:00)
[2017-08-09] MEDS: ACETAMINOPHEN/HYDROcodone 325 MG/10 MG TAB PO PRN ×6 (00:10→23:38)
[2017-08-09] MEDS: IBUPROFEN 400 MG TAB PO SCH ×6 (00:11→23:37)
[2017-08-09 06:03] LABS: BASOPHIL % 0.2 % (0.0-2.0); EOSINOPHIL % 0.6 % (0.0-4.0); HEMOGLOBIN 7.2 GM/DL (11.6-15.3); LYMPH % 29.5 % (9.0-44.0); LYMPHOCYTE # 1.9 TH/MM3 (1.0-4.8); MEAN CORPUSCULAR HEMOGLOBIN 25.7 PG (27.0-34.0); MEAN CORPUSCULAR HGB CONC 32.6 % (32.0-36.0); MEAN PLATELET VOLUME 9.5 FL (7.0-11.0); MONO % 7.4 % (0.0-8.0); MONOCYTE # 0.5 TH/MM3 (0-0.9); NEUT % 62.3 % (16.0-70.0); PLATELET COUNT 150 TH/MM3 (150-450); RED BLOOD COUNT 2.79 MIL/MM3 (4.00-5.30); WHITE BLOOD COUNT 6.4 TH/MM3 (4.0-11.0)
[2017-08-09] MEDS: SODIUM CHLORIDE 0.9% FLUSH 10 ML FLUSH IV FLUSH SCH (08:13)
[2017-08-09] MEDS: DOCUSATE SODIUM 50 MG/SENNA 8.6 MG TAB PO PRN ×2 (08:54→19:27)
--- NOTE | 2017-08-09 09:28 | HHI.OB ---
Subjective Post Operative Day: 2 Objective Result Diagram: 08/09/17 0518 Objective Remarks GENERAL: Well-nourished, well-developed patient. CARDIOVASCULAR: Regular rate and rhythm without murmurs, gallops, or rubs. RESPIRATORY: Breath sounds equal bilaterally. No accessory muscle use. ABDOMEN/GI: Abdomen soft, non-tender, bowel sounds present. Incision: Clean, dry and intact, pam Fundus: Firm, non-tender at umbilicus. GENITOURINARY: Light to moderate bleeding. EXTREMITIES: No cyanosis, +1 pitting edema to lower extremities, non-tender, without signs of DVT. Medications and IVs Current Medications Medications (Trade) Dose Ordered Sig/Dillon Route Start Time Stop Time Status Last Admin (NS Flush) 2 ml BID IV FLUSH 08/07/17 09:00 (NS Flush) 2 ml UNSCH PRN IV FLUSH 08/07/17 09:00 (Mylicon Chew) 80 mg QID PRN PO 08/07/17 09:00 (Tylenol) 650 mg Q6H PRN PO 08/07/17 09:00 (Raquel-Colace) 2 tab Q12H PRN PO 08/07/17 09:00 08/09/17 08:54 (Ambien) 5 mg HS PRN PO 08/07/17 09:00 (Zofran Odt) 4 mg Q6H PRN PO 08/07/17 09:00 Iron Sucrose 200 mg/Sodium Chloride 110 ml @ 110 mls/hr Q24H IV 08/08/17 11:00 08/10/17 11:59 (Motrin) 400 mg Q4HR PO 08/08/17 12:00 08/09/17 08:54 ([place] 5-325 Mg) 1 tab Q4HR PRN PO 08/08/17 15:45 ([place] 10-325 Mg) 1 tab Q4H PRN PO 08/08/17 15:45 08/09/17 08:54 Assessment/Plan Problem List: (1) Anemia ICD Codes: D64.9 - Anemia, unspecified Plan: Venofer iv (2) Delivery by section of full-term infant ICD Codes: O82 - Encounter for delivery without indication Plan: routine Assessment and Plan POD #2 primary c/s pt doing well todays hgb 7.2, pt refused Venofer, CBC in am denies chest pain, SOB, or dizziness VSS adjustment in pain medication has helped, pain well managed TSH elevated, she will f/u with primary and bonding with infant pt has not showered yet, nurses are encouraging her routine care Discharge Planning consider dc in 1-2 days Ana Mcclain Aug 09, 2017 09:28
[2017-08-09] MEDS: IRON SUCROSE INJ 200 MG in SODIUM CHLORIDE 0.9% INJ 100 ML IV SCH (11:00)
[2017-08-10] MEDS: IBUPROFEN 400 MG TAB PO SCH ×3 (03:27→12:54)
[2017-08-10] MEDS: ACETAMINOPHEN/HYDROcodone 325 MG/10 MG TAB PO PRN ×3 (03:28→12:54)
[2017-08-10 05:59] LABS: HEMATOCRIT 24.3 % (35.0-46.0); HEMOGLOBIN 7.9 GM/DL (11.6-15.3); MEAN CELL VOLUME 80.1 FL (80.0-100.0); MEAN CORPUSCULAR HEMOGLOBIN 26.1 PG (27.0-34.0); MEAN CORPUSCULAR HGB CONC 32.6 % (32.0-36.0); MEAN PLATELET VOLUME 9.4 FL (7.0-11.0); PLATELET COUNT 190 TH/MM3 (150-450); RED BLOOD COUNT 3.03 MIL/MM3 (4.00-5.30); WHITE BLOOD COUNT 5.4 TH/MM3 (4.0-11.0)
[2017-08-10] MEDS: SODIUM CHLORIDE 0.9% FLUSH 10 ML FLUSH IV FLUSH SCH (08:20)
[2017-08-10] MEDS: IRON SUCROSE INJ 200 MG in SODIUM CHLORIDE 0.9% INJ 100 ML IV SCH (10:29)
--- NOTE | 2017-08-10 11:39 | HHI.DCPOC ---
Discharge Care Plan Diagnosis: (1) Anemia (2) Delivery by section of full-term Your Health Problems Are: delivery Additional Problems DAILY IRON ONCE SHE IS NO LONGER TAKING PAIN MEDICATION Report Symptoms to Your Doctor -Temperature above 100.5 degrees -Redness, of incision or excessive or foul smelling drainage -Unusual pain or calf pain -Increased vaginal bleeding -Painful or difficulty urinating -Feelings of extreme sadness or anxiety after 2 weeks Goals to Promote Your Health * To prevent worsening of your condition and complications * To maintain your health at the optimal level Directions to Meet Your Goals Take your medications as prescribed Follow your dietary instruction Follow activity as directed Ensure plenty of rest for recovery Drink fluids for hydration Keep your appointments as scheduled Take your immunizations and boosters as scheduled If your symptoms worsen call your PCP, if no PCP go to Urgent Care Center or Emergency Room Smoking is Dangerous to Your Health. Avoid second hand smoke Call the 24-hour crisis hotline for domestic abuse at Ana Mcclain Aug 10, 2017 11:39
--- NOTE | 2017-08-10 11:41 | HHI.DS ---
Admission Date Aug 06, 2017 at 11:06 Discharge Date: Aug 10, 2017 Admitting Diagnosis TERM [facility] Diagnosis: (1) Delivery by section of full-term Diagnosis: Principal ICD Codes: O82 - Encounter for delivery without indication (2) Anemia Diagnosis: Secondary ICD Codes: D64.9 - Anemia, unspecified Delivery Date: Aug 07, 2017 : Primary Reason: ARREST OF DILATATION ARREST OF DESCENT Infant: Female Brief History pt. is a 23 @ 40 5/7 weeks present w/ c/o ctxs. pt. states ctxs began last evening and have increased in intensity and freq. +FM, no lof/vb. on present pt. cervix checked /high Hospital Course TERM LABOR ARREST OF DILATATION AND ARREST OF DESCENT PRIMARY C SECTION SEVERE ANEMIA- REFUSED VENOFER ROUTINE CARE Pt Condition on Discharge: Good Discharge Disposition: Discharge Home Discharge Instructions Diet Instructions: As Tolerated, No Restrictions Additional Diet Instructions: Drink at least 8 - 16 oz bottles of water a day Activities You Can Perform: Shower Only-No Bath Activities to Avoid: Prolonged Standing, Strenuous Activity, Sexual Activity Additional Activity Instruc.: No driving until off pain medications Do not lift anything heavier than your baby in an carrier Follow up Referrals: DIRECTOR OF PUBLIC HEALTH - 1 Week @ [facility] Ana Mcclain Aug 10, 2017 11:41
--- NOTE | 2017-08-10 12:26 | HHI.OB ---
Subjective Post Operative Day: 3 Objective Vitals/I&O 121/59, P. 85, R-18. T 98.1 Result Diagram: 08/10/17 0544 Objective Remarks GENERAL: Well-nourished, well-developed patient. CARDIOVASCULAR: Regular rate and rhythm without murmurs, gallops, or rubs. RESPIRATORY: Breath sounds equal bilaterally. No accessory muscle use. ABDOMEN/GI: Abdomen soft, non-tender, bowel sounds present. Incision: Clean, dry and intact, pam Fundus: Firm, non-tender at umbilicus. GENITOURINARY: Light to moderate bleeding. EXTREMITIES: No cyanosis, +1 pitting edema to lower extremities, non-tender, without signs of DVT. Medications and IVs Current Medications Medications (Trade) Dose Ordered Sig/Dillon Route Start Time Stop Time Status Last Admin (NS Flush) 2 ml BID IV FLUSH 08/07/17 09:00 (NS Flush) 2 ml UNSCH PRN IV FLUSH 08/07/17 09:00 (Mylicon Chew) 80 mg QID PRN PO 08/07/17 09:00 (Tylenol) 650 mg Q6H PRN PO 08/07/17 09:00 (Raquel-Colace) 2 tab Q12H PRN PO 08/07/17 09:00 08/09/17 19:27 (Ambien) 5 mg HS PRN PO 08/07/17 09:00 (Zofran Odt) 4 mg Q6H PRN PO 08/07/17 09:00 (Motrin) 400 mg Q4HR PO 08/08/17 12:00 08/10/17 07:35 ([place] 5-325 Mg) 1 tab Q4HR PRN PO 08/08/17 15:45 ([place] 10-325 Mg) 1 tab Q4H PRN PO 08/08/17 15:45 08/10/17 07:35 Assessment/Plan Problem List: (1) Anemia ICD Codes: D64.9 - Anemia, unspecified Plan: Venofer iv pt refused, will manage PP (2) Delivery by section of full-term infant ICD Codes: O82 - Encounter for delivery without indication Plan: routine Assessment and Plan POD #3 primary c/s pt doing well today hgb 7.9, pt refused Venofer, advised to take daily iron once she is no longer taking pain medication, will follow PP in office VSS pt to f/u with PCP for thyroid pain well managed with oral medication /bottle feeding nurses were concerned and called Dr Padilla because pt sleeping with infant in bed throughout stay, pt was advised multiple times of the increase risk for . DCF called to evaluate. routine care Discharge Planning dc home today written RX for [place] given Ana Mcclain Aug 10, 2017 12:26
[2017-08-10] MEDS: DOCUSATE SODIUM 50 MG/SENNA 8.6 MG TAB PO PRN (12:53)
== END 2017-08-10 13:10 | disposition home or self-care (01) | DRG 766 ==
LOC: HOBED 10:01 → H2EB 11:06 → H1EA 08-07 10:25
PROVIDERS: ADMIT Obstetrics & Gynecology; ATTEND Obstetrics & Gynecology
PROC: 10D00Z1 Extraction of Products of Conception, Low, Open Approach (ICD-10-PCS; principal; 2017-08-07)
DX: O62.0 Primary inadequate contractions (principal); D64.9 Anemia, unspecified; O99.02 Anemia complicating childbirth; O62.1 Secondary uterine inertia; Z3A.40 40 weeks gestation of pregnancy; Z37.0 Single live birth
CPT/HCPCS: 76816; 76818; 80307; 81001; 84443; 85025; 85027; 86850; 86900; 86901; 90715; 99284; J0131; J0690; J2274; J2370; J2405; J2540; J2590; J3010; J7120